=== PATIENT | male | born 1985 | race Caucasian/White ===

== ENCOUNTER 2017-06-02 13:22 | Emergency (ER) | payer MEDICAID ==
[~2017-06-02] VITALS: Ht 185.4 cm; Wt 85.7 kg
[~2017-06-02 13:22] MED LIST: CLEOCIN HCL300 MG PO; FLEXERIL10 MG PO; IBUPROFEN400 MG PO; KEFLEX 500MG.500 MG PO; MECLIZINE HYDRO25 M2 PO; OMNICEF 300 MG300 MG PO; PERCOCET 5/3251 EACH PO; PHENERGAN25 M3 PO; PREDNISONE 10MG10 MG PO; PREDNISONE 20MG20 MG PO; SEPTRA DS 800 M1 TAB PO; SUBOXONE 8 MG-21 FIL SL; ZITHROMAX Z PA250 MG PO; Zofran4 MG PO
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
[2017-06-02 15:16] VITALS: BP 132/82
== END 2017-06-02 15:18 | disposition home or self-care (01) ==
LOC: UTC 13:22
DX: S39.012A Strain of muscle, fascia and tendon of lower back, initial encounter (principal); Z72.0 Tobacco use; W13.2XXA Fall from, out of or through roof, initial encounter